=== PATIENT | female | born 1935 | race Hispanic/Latino ===

== ENCOUNTER 2018-09-24 11:08 | Outpatient (CLI) | payer MEDICARE ==
--- NOTE | 2018-09-24 14:43 | Mammography Report ---
BILATERAL DIGITAL SCREENING MAMMOGRAM with CAD: 09/24/18 11:08:00 CLINICAL: Routine screening. COMPARISON: 01/09/15 FINDINGS: There are bilateral scattered areas of fibroglandular density.No mass, architectural distortion or suspicious calcifications. IMPRESSION: No mammographic evidence of malignancy. BI-RADS CATEGORY: 1 -- Negative RECOMMENDATION: Routine mammographic screening in one year. COMMENT: Patient follow-up letters are generated by our [employer] application.
== END 2018-09-24 11:09 | disposition home or self-care (01) ==
LOC: SPVWC 11:08
PROVIDERS: ATTEND Specialist
DX: Z12.31 Encounter for screening mammogram for malignant neoplasm of breast (principal)
CPT/HCPCS: 77067

== ENCOUNTER 2021-06-03 08:21 | Outpatient (CLI) | payer MEDICARE ==
[2021-06-03 09:34] LABS: Blood Urea Nitrogen 15 mg/dL (7-17)
--- NOTE | 2021-06-03 11:10 | Cat Scan Report ---
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 TECHNIQUE: Axial CT images were obtained through the chest after injection of 100 cc of Omnipaque 350 IV contrast. 3 plane MIP and/or 3D reconstructions were produced. All CT scans at this location are performed using CT dose reduction for ALARA by means of automated exposure control. COMPARISON: No relevant comparison FINDINGS: HEART: - Size: Mild cardiomegaly - [place] Coronary Atherosclerosis: Mild. - Pericardium: No pericardial effusion. THORACIC AORTA: - Dissection: No dissection. - Aneurysm: No aneurysm or pseudoaneurysm. The mid ascending aorta measures 3.7 cm. The aortic arch m easures 3.1 cm. The descending thoracic aorta measures 3.1 cm. The aorta at the aortic hiatus measure s 2.8 cm. - Atherosclerosis: Mild atherosclerosis. . GREAT VESSELS: No acute abnormality. No significant atherosclerosis. PULMONARY ARTERIES: No pulmonary emboli. CHEST VEINS: Single SVC of normal caliber as visualized to the right of midline. No significant abnor mality. ADDITIONAL CHEST FINDINGS: No significant additional findings. UPPER ABDOMEN: No signficant abnormality. SKELETAL SYSTEM: Mild thoracic spondylosis. No suspicious bony lesion. IMPRESSION: The thoracic aorta is mildly dilated and ectatic with measurements as outlined above. The mid ascendi ng aorta is borderline to mildly dilated measuring 3.7 cm in diameter. Signer Name: William Ivan Jr, MD Signed: 06/03/2021 11:06 AM Workstation Name: [id number]
== END 2021-06-03 08:22 | disposition home or self-care (01) ==
LOC: CT 08:21
PROVIDERS: ATTEND Internal Medicine
DX: I51.7 Cardiomegaly (principal); I77.810 Thoracic aortic ectasia; I71.2 Thoracic aortic aneurysm, without rupture; I25.10 Atherosclerotic heart disease of native coronary artery without angina pectoris; I70.0 Atherosclerosis of aorta; M47.819 Spondylosis without myelopathy or radiculopathy, site unspecified
CPT/HCPCS: 36415; 71275; 82565; 84520; Q9967